=== PATIENT | male | born 2000 | race Hispanic/Latino ===

== ENCOUNTER 2024-03-28 12:45 | Day surgery (SDC) | payer OTHER, SELFPAY ==
--- NOTE | 2024-03-28 | PATH_ITS ---
[facility] Accession Number: [id number] No. of containers..02 Tissue . 01 Material submitted: . PART A: duodenum - DUODENAL PART B: gastrointestinal site - ANTRUM . 01 Diagnosis: A. DUODENUM, BIOPSY: Duodenal mucosa with no diagnostic abnormality. Negative for active inflammation, features of sprue, dysplasia, or malignancy. . B. STOMACH, ANTRUM, BIOPSY: Antral mucosa with reactive gastropathy and mild chronic gastritis. Negative for Helicobacter by immunohistochemistry. Negative for intestinal metaplasia. Negative for dysplasia and malignancy. . MRV 03/31/2024 1338 Local . 01 Electronically signed: . Farzaneh Brown MD, Pathologist NPI- [id number] . 01 Gross description: . A. Received in formalin with two patient identifiers and duodenal biopsy, are four ochoa soft tissue fragments, 0.3 to 0.4 cm in greatest dimension. Submitted in A1. B. Received in formalin with two patient identifiers and antrum biopsy, is a single ochoa soft tissue fragment, 0.4 in greatest dimension. Submitted in B1. ([id number]) /MRV 03/29/2024 1832 Local . 01 Microscopic: . B. An immunohistochemical stain was performed to evaluate for Helicobacter organisms and is negative. The control stain showed appropriate reactivity. . * This test was developed and its performance characteristics determined by [facility]. It has not been cleared or approved by the U.[place]. Food and Drug Administration. The FDA has determined that such clearance or approval is not necessary. This test is used for clinical purposes. It should not be regarded as investigational or for research. . 01 Pathologist provided ICD-10: R10.9 . 01 CPT . D99334, Z06240, L75040 Specimen Comment: A courtesy copy of this report has been sent to [phone] Performed at: [address] [facility] [address], [place], [place] [id number] MD Ramos De Jesus MD Phone: [phone]
[2024-03-28 13:16] VITALS: BP 152/82; PULSE 78; RESP 16; TEMP 36.7; O2SAT 100; BMI 23.6
[2024-03-28] MEDS: LACTATED RINGERS 1,000 ML 42 ML IV (13:21)
--- NOTE | 2024-03-28 13:21 | P.HP_ITS ---
History of Present Illness History of Present Illness Date Patient Seen: 03/28/24 Time Patient Seen: 13:21 Chief complaint: EGD w/poss bx Narrative: 23-year-old male here for upper endoscopy. I reviewed the recent notes in GI clinic by Dr. Holcomb. No significant changes. The patient indicates that his diet does include gluten at present. He has a mild iron-deficiency intermittent nausea vomiting and mildly positive celiac serology. [facility] Social History household members: friend(s) Meds Home Medications and Allergies Home Medications Medication Instructions Recorded Confirmed Type No Known Home Medications 03/28/24 03/28/24 History Allergies Allergy/AdvReac Type Severity Reaction Status Date / Time No Known Drug Allergies Allergy Verified 03/28/24 13:15 Review of Systems Review of Systems ROS: Yes All systems reviewed with the patient and are negative except as otherwise documented Exam Vital Signs (past 8 hours): - 03/28/24 13:16 Temperature 98.1 F Pulse Rate 78 Respiratory Rate 16 Blood Pressure 152/82 H Pulse Oximetry 100 Oxygen Delivery Method Room Air Oxygen Delivery Method Room Air Const General: cooperative HENMT Head: normal to inspection Eyes General: appearance normal, both eyes and all related structures Neck Neck: normal visual inspection Chest Chest: normal inspection of the chest Resp Effort & Inspection: normal respiratory effort Cardio Rate: regular rate GI Inspection: normal to inspection Skin General: no rashes or lesions noted Neuro General: patient alert and patient awake Extrem General: normal to inspection and no pedal edema Psych Appearance: grossly normal Assessment & Plan Assessment & Plan narrative: 23-year-old male with history of iron-deficiency, intermittent nausea vomiting, and positive celiac serology. Diagnostic EGD with small-bowel biopsies is pursued today. Time-Based Coding :: [TOTAL MINUTES] spent with patient and on the chart (including review of chart, obtaining history, exam, reviewing outside data, placing orders, documenting exam and treatment plan, and counseling patient) on [DATE].
--- NOTE | 2024-03-28 13:22 | PM.PREOP ---
Pre-operative Note Interval Note History & Physical reviewed/Exam performed by Physician: Yes Changes to H&P: No ASA Class (for procedural sedation): I
[2024-03-28 13:38] VITALS: BP 115/52; PULSE 69; RESP 18; O2SAT 98
--- NOTE | 2024-03-28 14:08 | SUR.OPER ---
EGD SCOPE 047
--- NOTE | 2024-03-28 14:31 | P.OP.EGD_ITS ---
Operative Date/Time/Diagnoses Date of procedure: 03/28/24 Time of procedure: 14:31 Pre-op diagnosis: Nausea vomiting iron-deficiency anemia positive celiac serology Post-op diagnosis: same Procedure & Clinicians Study performed: EGD with biopsies Same procedure as scheduled: Yes Indications: Nausea vomiting iron-deficiency anemia positive celiac serology Surgeon: Les Pickard Procedure Notes SCOAP/Timeout: Done Procedure in detail: After the risks and benefits were explained, written and verbal informed consent was obtained. The patient was brought into the procedure room and placed into the left lateral decubitus position. Please see anesthesia notes for sedation details. The scope was introduced into the mouth through the bite block and advanced under direct visualization to the 2nd portion of the duodenum. The scope was slowly withdrawn carefully examining the mucosa for any defects or lesions. Retroflexed views were accomplished in the stomach. The stomach was decompressed, the scope was then removed from the patient who tolerated the procedure well. Sedation minutes: 10 Complications: none Impression: 1. Duodenum: No ulcers, masses, strictures throughout the examined duodenal. I did not see any classic scalloping of the mucosa. There was perhaps some mild subtle erythema noted in D2. Multiple biopsies were taken from D2 to exclude celiac sprue. 2. Stomach: No outlet obstruction. No ulcers, masses, or other overt pathology. Retroflexed views of the LES were unremarkable. Minimal erythema was noted throughout the gastric antrum and biopsies were acquired for exclusion of H pylori or other pathology. 3. Esophagus: The squamocolumnar junction correlated with the top of the belen elisabeth folds. The GEJ was at about 39 cm from the incisors. There was a moderate amount of symmetric subepithelial vascularization identified in the distal esophagus but no evidence of esophagitis, neoplasia, stricturing, or other pathology throughout. Endoscopic diagnosis 1. Minimal gastropathy 2. Otherwise visually unremarkable EGD with biopsies pending Post-procedure Plan for aftercare: 1. Await histology. 2. While waiting on histology, initiate a trial of strict gluten free diet. 3. Follow up GI clinic in the next 3-4 weeks. Disposition: PACU
[2024-03-28 14:33] VITALS: BP 117/55; PULSE 70; RESP 18; TEMP 36.5; O2SAT 98
[2024-03-28] MEDS: LACTATED RINGERS 1,000 ML 442 ML IV (14:42)
[2024-03-28 14:43] VITALS: BP 114/53; PULSE 78; RESP 18; O2SAT 99
[2024-03-28 14:51] VITALS: BP 103/53; PULSE 63; RESP 16; TEMP 36.1; O2SAT 100
== END 2024-03-28 15:11 | disposition home or self-care (01) ==
PROVIDERS: Referring Provider Internal Medicine Gastroenterology; Visit Provider Internal Medicine Gastroenterology
PROC: 0DJ08ZZ Inspection of Upper Intestinal Tract, Via Natural or Artificial Opening Endoscopic (ICD-10-PCS; CPT 43235; principal; 2024-03-28 14:00)
DX: R11.2 Nausea with vomiting, unspecified (principal); D50.9 Iron deficiency anemia, unspecified; R89.4 Abnormal immunological findings in specimens from other organs, systems and tissues; K31.9 Disease of stomach and duodenum, unspecified; K29.50 Unspecified chronic gastritis without bleeding
CPT/HCPCS: 43239; J2704